=== PATIENT | female | born 1995 | race Caucasian/White ===

== ENCOUNTER 2023-12-07 05:20 | Inpatient (IN) ==
--- NOTE | 2023-11-23 09:15 | Anesthesiology Consultation ---
Date of Service November 23, 2023 Assessment & Plan (1) Encounter for pre-operative examination: Infectious disease screening: Per assessment on 11/23/23: No known infectious disease contacts or current infectious disease symptoms. No noted recent Covid positive test result. Chart Review Chart Review: Patient NOT seen in Pre Admission Testing and dice spotter initiated History Surgery Operation Date: 12/07/23 07:30 Proposed Procedures p Section (Delivery of Baby Through Abdominal Incision) - Anita Bliss MD, FACOG Height/Weight Height: 5 ft 3.5 in Weight: 69.853 kg Allergies Allergy/AdvReac Type Severity Reaction Status Date / Time No Known Allergies Allergy Verified 11/23/23 08:29 Medications Home Medications Medication Instructions Recorded Confirmed Last Taken vit 168-iron 27 mg-folic 1 cap PO QAM 04/16/23 11/23/23 Unknown acid 800 mcg-omega3 235 mg capsule (One-A-Day -1) Past Medical History Medical History History of COVID-19 2021- mild symptoms Past Family History Family History Father Dyslipidemia Hypertension Kidney stone Grandfather Dyslipidemia Cancer Diabetes Pancreatic cancer Sister Kidney stone Uncle Cancer Pancreatic cancer Grandfather (Paternal) Melanoma Past Surgical History Surgical History History of oral surgery wisdom teeth Social History Smoking Status: Never smoker Do You Dip or Chew Tobacco: No Hx Alcohol Use: No Hx Substance Use: No substance use type: does not use
--- NOTE | 2023-12-02 13:04 | History & Physical Report ---
Date of Service December 02, 2023 Assessment & Plan (1) with 39 completed weeks gestation: (2) Breech presentation: Plan Declines attempt at ECV. Plan primary c/s. r/b/se of surgery discussed including anesthesia, bleeding, transfusion, infection, poor wound healing, damage to surrounding structures, injury to the baby , need for further sugery, heart attack, blood clot, stroke, . Discussed the implication of c/s on future and delivery options. Consent reviewed and signed. Questions asked and answered. History of Present Illness Chief Complaint: breech presentation Primary Care Provider: Aureliano Rodriguez MD Patient is a 28yowf with iup at 39 1/7 weeks for primary c/s for breech. She declines ECV. has been uncomplicated. and Delivery Plans covid unvaccinated BREECH C/S SCHEDULED FOR 12/07/[address] MELLY TRAMMELL GBS positive OB Labs: Blood Type O Positive 04/27/23 Antibody Screen NEGATIVE 04/27/23 Hemoglobin 12.6 g/dl (12.0-16.0) 09/14/23 Hematocrit 38.6 % (37.0-47.0) 09/14/23 Mean Corpuscular Volume 88.2 fL (80.0-100.0) 06/01/23 Platelet Count 180 K/uL (130-400) 06/01/23 Rubella IgG Antibody Immune (Immune) 04/27/23 Rapid Plasma Reagin Nonreactive (Nonreactive) 04/27/23 Hepatitis B Surface Antigen. NON-REACTIVE (NON-REACTIVE) 04/27/23 Hepatitis C Antibody (EIA) NON-REACTIVE (NON-REACTIVE) 04/27/23 HIV (1&2) Ag and Ab Confirmation NON-REACTIVE (NON-REACTIVE) 04/27/23 Glucose 1 Hour 50 gm Load 153 mg/dl (70-130) H 06/23/23 OB Optional Labs: Chlamydia trachomatis RNA Not Detected (NotDetected) 04/27/23 Neisseria gonorrhoeae RNA Not Detected (NotDetected) 04/27/23 Labs Reviewed: Declines carrier screening--mln cfdna-low risk--mln declined afp passed 16 week gtt--akh GBS positive Allergies Allergy/AdvReac Type Severity Reaction Status Date / Time No Known Allergies Allergy Verified 12/02/23 15:11 Home Medications Medication Instructions Recorded Confirmed Type vit 168-iron 27 mg-folic 1 cap PO QAM 04/16/23 12/02/23 History acid 800 mcg-omega3 235 mg capsule (One-A-Day -1) Patient History Medical History History of COVID-19 2020, 2021- mild symptoms Surgical History History of oral surgery wisdom teeth Family History Father Dyslipidemia Hypertension Kidney stone Grandfather Dyslipidemia Cancer Diabetes Pancreatic cancer Sister Kidney stone Uncle Cancer Pancreatic cancer Grandfather (Paternal) Melanoma Social History Smoking Status: Never smoker Second Hand Exposure: No; Do You Dip or Chew Tobacco: No; Hx Alcohol Use: No Hx Substance Use: No Preferred Language: [place] Small Engine 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
[2023-12-07] MEDS: LACTATED RINGER'S 1,000 ML IV SCH ×2 (05:59→19:20)
[2023-12-07 06:09] LABS: Basophils # (auto) 0.03 K/uL (0.00-0.20); Basophils % (auto) 0.3 %; Eosinophils # (auto) 0.08 K/uL (0.00-0.50); Eosinophils % (auto) 0.9 %; Hematocrit (blood only) 39.4 % (37.0-47.0); Hemoglobin 13.5 g/dl (12.0-16.0); Immature Granulocytes # (auto) 0.07 K/uL (0.01-0.20); Immature Granulocytes % (auto) 0.8 %; Lymphocytes % (auto) 19.1 %; Mean Corpuscular Hemoglobin 30.7 pg (25.0-34.0); Mean Corpuscular Hgb Conc 34.3 g/dL (32.0-36.0); Mean Corpuscular Volume 89.5 fL (80.0-100.0); Mean Platelet Volume 11.1 fL (9.4-12.4); Monocytes # (auto) 0.82 K/uL (0.11-0.59); Monocytes % (auto) 9.2 %; Neutrophils % (auto) 69.7 %; Platelet Count 141 K/uL (130-400); RDW Coefficient of Variation 11.6 % (11.5-14.5); RDW Standard Deviation 37.9 fL (36.4-46.3)
[2023-12-07] MEDS ORDERED: OXYTOCIN 10 UNITS/ML VIAL ONE (06:56)
[2023-12-07] MEDS ORDERED: ePHEDrine sulfate 50 MG/5 ML SYR ONE (06:56)
[2023-12-07] MEDS ORDERED: fentaNYL citrate PF 100 MCG/2 ML VIAL ONE (06:56)
[2023-12-07] MEDS ORDERED: PHENYLEPHRINE HCL 10 MG/ML VIAL ONE (06:56)
[2023-12-07] MEDS ORDERED: ONDANSETRON INJ 2 MG/ML 2 ML VIAL ONE (06:56)
[2023-12-07] MEDS ORDERED: MoRPHine SULFATE PF 1 MG/ML 10 ML AMP/VIAL ONE (06:56)
[2023-12-07] MEDS ORDERED: KETOROLAC 30 MG/ML VIAL ONE (06:56)
[2023-12-07] MEDS ORDERED: ePHEDrine sulfate 50 MG/ML AMP IV PRN (07:10)
[2023-12-07] MEDS ORDERED: NALOXONE HCL 0.08 MG in SYRINGE 1.8 ML IV PRN (07:10)
[2023-12-07] MEDS ORDERED: ACETAMINOPHEN 1,000 MG/100 ML VIAL IV PRN (07:10)
[2023-12-07] MEDS ORDERED: diphenhydrAMINE 50 MG/ML VIAL IV PRN (07:10)
[2023-12-07] MEDS ORDERED: NALOXONE HCL 1 MG in SODIUM CHLORIDE 0.9% 1,000 ML IV PRN (07:10)
[2023-12-07] MEDS ORDERED: KETOROLAC 30 MG/ML VIAL IV PRN (07:10)
[2023-12-07] MEDS ORDERED: PROMETHAZINE HCL 6.25 MG in SODIUM CHLORIDE 0.9% 50 ML IV PRN (07:10)
[2023-12-07] MEDS ORDERED: NALBUPHINE HCL 5 MG in SYRINGE 0 ML IV PRN (07:10)
[2023-12-07] MEDS ORDERED: ONDANSETRON INJ 2 MG/ML 2 ML VIAL IV PRN ×2 (07:10→09:35)
[2023-12-07] MEDS ORDERED: HYDROmorphone INJ 0.5 MG/0.5 ML SYR IV PRN (07:10)
[2023-12-07] MEDS ORDERED: NALOXONE HCL 0.4 MG/1 ML VIAL/CARP IV PRN (07:10)
[2023-12-07] MEDS ORDERED: LACTATED RINGER'S 500 ML IV PRN (07:10)
--- NOTE | 2023-12-07 07:13 | History & Physical Bridge Note ---
Date of Service December 07, 2023 History & Physical Bridge Note I have examined the patient, reviewed the History & Physical and in the interval since the performance of the History & Physical I have noted the following changes of clinical significance: no changes noted, scanned and still breech.
[2023-12-07] MEDS ORDERED: DC INTRASPINAL MORPHINE SCH (07:15)
[2023-12-07] MEDS ORDERED: NO NARCOTICS OR SEDATIVES SCH (07:15)
[2023-12-07] MEDS: CITRIC ACID/SODIUM CITRATE 15 ML UDC PO SCH (07:27)
[2023-12-07] MEDS: ceFAZolin 2,000 MG in SYRINGE 0 ML IV SCH (07:31)
--- NOTE | 2023-12-07 08:31 | Operative Report ---
PG Post Operative Report Pre & Post Diagnosis Operation Date: 12/07/23 07:30 Pre-Op Diagnosis: Breech Presentation Post-Op Diagnosis: Breech Presentation I identified the patient and participated in the time-out.: Yes Procedure Operation Date: 12/07/23 07:30 Actual Procedures p primary low transverse Section delivery of live female child at 0755 - Anita Bliss MD, FACOG Surgeon Anita Bliss MD, FACOG [place] Spreader Dr. Livingston and Dr. Mcgraw Estimated Blood Loss 428 (QBL calculated) Findings Consistent with Post-Op Diagnosis viable female infant in LSA. clear fluid. Slightly heart shaped uterus, no indentation of the uterine cavity. nl tubes and ovaries bilaterally. Fluids 900cc Specimens none Drains crandall Anesthesia Type Spinal Complications none Disposition Accompanied Patient To Recovery: Yes Disposition: L&D Indications 28yowf with iup at 39 weeks with chantelle breech presentation. Description of Procedure The patient was taken to the operating room where she was identified verbally and by bracelet. She was seated on the operating table where a spinal anesthetic was placed by anesthesia. She was then placed in the supine position with a leftward tilt. A Crandall catheter was placed sterilely. the patient was prepped and draped in a normal standard fashion. the anesthetic was tested and found to be adequate. A time-out was held, identifying correct patient, procedure, positioning and preoperative antibiotics. There were no concerns. A Pfannenstiel skin incision was made with a knife and taken down to the underlying layer of fascia with the knife and Bovie electrocautery. Bleeding was attended to with the Bovie. The fascia was incised in the midline with the knife and taken out laterally with scissors. The superior edge of the fascial incision was grasped, elevated and the underlying layer of rectus muscle was taken off bluntly and with scissors. In a similar fashion, the inferior edge of the fascial incision was grasped, elevated and the underlying layer of rectus muscle was taken off bluntly and with scissors. The muscles were bluntly in the midline. The peritoneum was entered bluntly. The incision was then stretched. The bladder blade was placed. The vesicouterine peritoneum was identified, entered with scissors and taken out laterally with scissors. The bladder flap was created digitally A hysterotomy incision was scored with a knife and the incision was stretched superiorly and inferiorly with the pebble mill operator's fingers. The operators hand was placed into the incision and the buttocks were delivered atraumatically. The legs and arms were easily reduced across the body. The head was delivered atraumatically with fundal pressure. No nuchal cord. The nose and mouth were bulb suctioned. The baby was vigorous. The cord was clamped and cut and the was then handed off to the awaiting mincemeat maker for drying and attention. Cord blood and segment were obtained. The placenta was Manually extracted. The uterus was exteriorized and cleared of all clot and debris with moistened laparotomy sponges. The hysterotomy incision was repaired in two layers, the first in a running locked layer, the second in an imbricating layer. Hemostasis was noted to be good. Posterior cul-de-sac was irrigated and cleared of all clot and debris. The hysterotomy incision was again inspected and found to be hemostatic. the uterus was reinteriorized. Hysterotomy incision was again inspected and found to be hemostatic. Rectus muscles were reapproximated with several interrupted stitches of 0 Vicryl. The fascia was then reapproximated with 0 Vicryl starting at the edges and meeting in the midline. The subcuticular tissues were copiously irrigated and bleeding was attended to with cautery. The skin was then closed with 4-0 Vicryl in a subcuticular fashion. All sponge , lap and needle counts were correct x 2. the patient tolerated the procedure well and was taken to the recovery room in stable condition. Apgars 8/9. I attest to the content of the Intraoperative Record and any orders documented therein. Any exceptions are noted below. OB Procedure Charges 43456
[2023-12-07] MEDS ORDERED: NON-FORMULARY MEDICATION (Prenatal 168-Iron-Folic-Omega3 [One-A-Day Prenatal-1] 27 mg iron PO SCH (09:35)
[2023-12-07] MEDS ORDERED: BENZOCAINE 20% SPRY 85 APPLN/85 GM CAN EXT PRN (09:35)
[2023-12-07] MEDS ORDERED: HYDROCORTISONE ACETATE 25 MG SUPP PR PRN (09:35)
[2023-12-07] MEDS ORDERED: SENNA 8.6 MG TAB PO PRN (09:35)
[2023-12-07] MEDS ORDERED: MAGNESIUM HYDROXIDE SUSP 30 ML UDC PO PRN (09:35)
--- NOTE | 2023-12-07 10:01 | Anesthesiology Progress Note ---
Date of Service December 07, 2023 Anesthesia Post Procedure Vital Signs Vital Signs: Temp Pulse Resp BP Pulse Ox 12/07/23 09:56 99 12/07/23 09:56 56 L 12/07/23 09:56 59 L 114/77 12/07/23 09:51 55 L 99 12/07/23 09:46 58 L 99 12/07/23 09:45 55 L 113/67 12/07/23 09:41 57 L 99 12/07/23 09:36 58 L 99 12/07/23 09:35 55 L 114/67 12/07/23 09:31 58 L 99 12/07/23 09:26 56 L 98 12/07/23 09:25 97.7 F 18 12/07/23 09:25 54 L 114/66 12/07/23 09:21 71 99 12/07/23 09:16 61 98 12/07/23 09:15 18 12/07/23 09:15 59 L 110/66 12/07/23 09:11 57 L 99 12/07/23 09:06 98 12/07/23 09:06 62 12/07/23 09:06 59 L 108/64 12/07/23 09:05 20 12/07/23 09:01 56 L 98 12/07/23 08:56 59 L 109/68 97 12/07/23 08:55 18 12/07/23 08:51 61 97 12/07/23 08:46 98 12/07/23 08:46 59 L 12/07/23 08:46 59 L 114/64 12/07/23 08:45 18 12/07/23 08:41 61 98 12/07/23 08:36 99 12/07/23 08:36 64 12/07/23 08:36 60 111/55 L 12/07/23 08:35 16 12/07/23 08:31 65 100 12/07/23 08:26 65 99 12/07/23 08:25 69 116/56 L 12/07/23 07:00 18 12/07/23 07:00 98.1 F 12/07/23 06:58 67 117/77 12/07/23 05:54 76 126/84 12/07/23 05:50 98.2 F 12/07/23 05:44 88 136/87 Transfer of Care Handoff Completed per policy Notes Mental Status: alert / awake / arousable and participated in evaluation Patient Amnestic to Procedure: Yes Nausea / Vomiting: adequately controlled Pain: adequately controlled Airway Patency, RR, SpO2: stable & adequate BP & HR: stable & adequate Hydration State: stable & adequate Neuraxial Anesthesia: was administered and sensory block is resolving Anesthetic Complications: no major complications apparent and Pt Satisfied with anesthetic care
[2023-12-07] MEDS: OXYTOCIN 20 UNITS/LR 1,002 ML IV SCH (11:41)
[2023-12-07] MEDS: DIPHTHER/TETAN/PERTUS Vaccine (Tdap, Adol/Adult) 0.5mL IM ONE (12:11)
[2023-12-07] MEDS: SIMETHICONE 80 MG CHEW PO SCH (12:11)
[2023-12-07] MEDS: SODIUM CHLORIDE 0.9% 1,000 ML IV SCH (19:19)
[2023-12-07] MEDS: DOCUSATE SODIUM 100 MG CAP PO SCH (20:47)
[2023-12-08] MEDS ORDERED: diphenhydrAMINE 50 MG/ML VIAL IV PRN (01:10)
[2023-12-08] MEDS ORDERED: oxyCODONE/ACETAMINOPHEN 5mg/325mg TAB PO PRN (01:10)
[2023-12-08] MEDS ORDERED: diphenhydrAMINE Capsule 25 MG CAP PO PRN (01:10)
[2023-12-08] MEDS ORDERED: PROMETHAZINE HCL 25 MG in SODIUM CHLORIDE 0.9% 50 ML IV PRN (01:10)
[2023-12-08] MEDS ORDERED: KETOROLAC 30 MG/ML VIAL IV PRN (01:10)
[2023-12-08] MEDS: IBUPROFEN 600 MG TAB PO PRN (01:47)
[2023-12-08] MEDS: MoRPHine SULFATE PF 1 MG/ML 10 ML AMP/VIAL INT SPINAL ONE (01:47)
--- NOTE | 2023-12-08 07:03 | Obstetrical Progress Note ---
Date of Service <Marcelo Mcgraw DO - Last Filed: 12/08/23 07:53> December 08, 2023 Assessment & Plan <Marcelo Mcgraw DO - Last Filed: 12/08/23 07:53> (1) Encounter for assessment: Plan 28 y/o POD#1 Eating well, voiding well, ambulating well Vitals reviewed, WNL Pain well controlled with Motrin Routine post op care - OOB, ambulation, diet progression as tolerated Will have 6 week follow up with Dr. Bliss <Margarette Carballo MD, FACOG - Last Filed: 12/08/23 08:00> (1) Encounter for assessment: Subjective <Marcelo Mcgraw DO - Last Filed: 12/08/23 07:53> Ambulation: ambulating normally Voiding: no voiding problems Passing Gas:: No Diet Tolerance:: regular diet Lochia:: Moderate Feeding Type:: breast feeding Sore but pain well controlled with Motrin Review of Systems -Denies fever or chills -Denies dyspnea, chest pain, or palpitations -Denies dysuria -Denies headache or changes in vision Physical Exam <Marcelo Mcgraw DO - Last Filed: 12/08/23 07:53> General: Alert and oriented. No acute distress Cardiac: Regular rate and rhythm, no murmurs appreciated Respiratory: Lungs clear to auscultation bilaterally, No increased work of breathing Abdominal: Soft, non-tender, non-distended. Bowel sounds present. Uterus: Uterine fundus firm, palpable below umbilicus Extremities: No lower extremity edema, calves non-tender bilaterally Results & Data <Marcelo Mcgraw DO - Last Filed: 12/08/23 07:53> Vital Signs (Past 12 Hours) Vital Signs Temp Pulse Pulse Resp BP Pulse Ox O2 Del Method 12/08/23 04:50 37 C 68 16 99/60 L 99 Room Air 12/08/23 01:00 16 97 12/08/23 00:00 16 97 12/07/23 23:15 37 C 74 16 106/65 97 Room Air 12/07/23 22:00 16 98 12/07/23 21:00 16 97 12/07/23 19:50 37 C 67 16 111/68 97 Room Air Supervising Physician <Margarette Carballo MD, FACOG - Last Filed: 12/08/23 08:00> Co-Signing Physician Notes Resident Physician Supervision Note: I was present with Dr. Mcgraw during the history and exam. I discussed the case with the resident and agree with the findings and plan as documented in the note. Any exceptions or clarifications are listed here: stable, doing well, no flatus yet, eating regular diet, voiding. breast feeding. no pain control issues. abd soft ff 2 down nt, incision c/d/i with steris, ext nt calves. pod#1 s/p cs routine care, hgb pending. Documented By: Margarette Carballo MD, FACOG Resident Activity Tracking <Marcelo Mcgraw DO - Last Filed: 12/08/23 07:53> Resident Involvement: Resident Care Provided Care Provided: OB Delivery
[2023-12-08 07:05] LABS: Basophils # (auto) 0.02 K/uL (0.00-0.20); Basophils % (auto) 0.2 %; Eosinophils % (auto) 1.2 %; Hematocrit (blood only) 33.5 % (37.0-47.0); Hemoglobin 11.4 g/dl (12.0-16.0); Immature Granulocytes # (auto) 0.05 K/uL (0.01-0.20); Immature Granulocytes % (auto) 0.6 %; Lymphocytes % (auto) 15.6 %; Mean Corpuscular Hemoglobin 31.4 pg (25.0-34.0); Mean Corpuscular Volume 92.3 fL (80.0-100.0); Mean Platelet Volume 10.7 fL (9.4-12.4); Monocytes # (auto) 0.55 K/uL (0.11-0.59); Monocytes % (auto) 6.6 %; Neutrophils # (auto) 6.33 K/uL (1.40-6.50); Neutrophils % (auto) 75.8 %; Platelet Count 110 K/uL (130-400); RDW Coefficient of Variation 11.8 % (11.5-14.5); RDW Standard Deviation 39.8 fL (36.4-46.3); Red Blood Count 3.63 M/uL (4.20-5.40); White Blood Count 8.35 K/ul (4.8-10.8)
[2023-12-08] MEDS: PRENATAL VITAMIN 1 TAB PO SCH (08:00)
[2023-12-08] MEDS: FERROUS SULFATE 325 MG TAB PO SCH (08:00)
[2023-12-08] MEDS: bisacodyL 5 MG TABEC PO SCH (20:15)
--- NOTE | 2023-12-09 06:03 | Obstetrical Progress Note ---
Date of Service <Marcelo OlsonDO vitaly - Last Filed: 12/09/23 06:03> December 09, 2023 Assessment & Plan <Marcelo Mcgraw - Last Filed: 12/09/23 06:03> (1) Encounter for assessment: Plan 28 y/o POD#2 Eating well, voiding well, ambulating well Vitals reviewed, WNL Pain well controlled with Motrin Routine post op care - OOB, ambulation, diet progression as tolerated Will have 6 week follow up with Dr. Bliss <Salome Pearson MD - Last Filed: 12/09/23 07:07> (1) Encounter for assessment: Subjective <Marcelo McgrawDO vitaly - Last Filed: 12/09/23 06:03> Ambulation: ambulating normally Voiding: no voiding problems Passing Gas:: Yes Diet Tolerance:: regular diet Lochia:: Small Feeding Type:: breast feeding pain well controlled with Motrin Review of Systems -Denies fever or chills -Denies dyspnea, chest pain, or palpitations -Denies dysuria -Denies headache or changes in vision Physical Exam <Marcelo McgrawDO vitaly - Last Filed: 12/09/23 06:03> General: Alert and oriented. No acute distress Cardiac: Regular rate and rhythm, no murmurs appreciated Respiratory: Lungs clear to auscultation bilaterally, No increased work of breathing Abdominal: Soft, non-tender, non-distended. Bowel sounds present. Uterus: Uterine fundus firm, palpable below umbilicus Extremities: No lower extremity edema, calves non-tender bilaterally Results & Data <Marcelo Mcgraw DO - Last Filed: 12/09/23 06:03> Vital Signs (Past 12 Hours) Vital Signs Temp Pulse Resp BP Pulse Ox O2 Del Method 12/08/23 23:55 36.4 C L 59 L 16 122/68 97 Room Air 12/08/23 20:10 36.6 C 68 16 116/75 98 Room Air Supervising Physician <Salome Pearson MD - Last Filed: 12/09/23 07:07> Co-Signing Physician Notes Resident Physician Supervision Note: I interviewed and examined the patient. Discussed with Dr. Mcgraw and agree with findings and plan as documented in the note. Any exceptions or clarifications are listed here: POD2 s/p pLTCS, doing well. Still waiting for milk to come in. VSS, exam benign and wnl, incision c/d/i. Not sure if wants to go home today or tomorrow, ok for today if desires Documented By: Salome Pearson MD Resident Activity Tracking <Marcelo Mcgraw, - Last Filed: 12/09/23 06:03> Resident Involvement: Resident Care Provided Care Provided: OB Delivery
[2023-12-09 06:25] LABS: Hematocrit (blood only) 35.5 % (37.0-47.0); Hemoglobin 11.8 g/dl (12.0-16.0)
[2023-12-09] MEDS ORDERED: bisacodyL 10 MG SUPP PR PRN (08:17)
--- NOTE | 2023-12-10 15:08 | Discharge Summary ---
Date of Service December 10, 2023 Admission HPI Per Admitting Provider Patient is a 28yowf with iup at 39 1/7 weeks for primary c/s for breech. She declines ECV. has been uncomplicated. and Delivery Plans covid unvaccinated BREECH C/S SCHEDULED FOR 12/07/[address] ANITA TRAMMELL GBS positive OB Labs: Blood Type O Positive 04/27/23 Antibody Screen NEGATIVE 04/27/23 Hemoglobin 12.6 g/dl (12.0-16.0) 09/14/23 Hematocrit 38.6 % (37.0-47.0) 09/14/23 Mean Corpuscular Volume 88.2 fL (80.0-100.0) 06/01/23 Platelet Count 180 K/uL (130-400) 06/01/23 Rubella IgG Antibody Immune (Immune) 04/27/23 Rapid Plasma Reagin Nonreactive (Nonreactive) 04/27/23 Hepatitis B Surface Antigen. NON-REACTIVE (NON-REACTIVE) 04/27/23 Hepatitis C Antibody (EIA) NON-REACTIVE (NON-REACTIVE) 04/27/23 HIV (1&2) Ag and Ab Confirmation NON-REACTIVE (NON-REACTIVE) 04/27/23 Glucose 1 Hour 50 gm Load 153 mg/dl (70-130) H 06/23/23 OB Optional Labs: Chlamydia trachomatis RNA Not Detected (NotDetected) 04/27/23 Neisseria gonorrhoeae RNA Not Detected (NotDetected) 04/27/23 Labs Reviewed: Declines carrier screening--mln cfdna-low risk--mln declined afp passed 16 week gtt--[facility] GBS positive Discharge Data Consultations 12/07/23 05:26 Consult Anesthesiology Stat Procedures Performed Operation Date: 12/07/23 07:30 Actual Procedures p Section delivery of live female child at 0755 - Anita Trammell MD, [facility] – [place] Hospital Course (1) Breech presentation: (2) with 39 completed weeks gestation: (3) delivery delivered: Plan The patient was admitted on 12/07/23 and underwent a primary low transverse c- section without issues. Blood loss less than 500cc. Her post -postop ourse was uncomplicated. she tolerated a regular diet, ambulated without difficulty, voided after removal of her crandall, tolerated oral pain medications. She was d/c home on pod #2, 12/09/23. Her discharge h/h was 11.8/35.5. Coding Level of Care Code None Diagnoses Breech presentation, single or unspecified fetus O32.1XX0 Fetus number: single or unspecified fetus with 39 completed weeks gestation Z3A.39 delivery delivered O82
== END 2023-12-09 15:30 | disposition home or self-care (01) | DRG 788 ==
LOC: 4S1 05:20 → EDSTATUS 07:30 → 4E2 10:55
DX: O32.1XX0 Maternal care for breech presentation, not applicable or unspecified; Z3A.39 39 weeks gestation of pregnancy; Z37.0 Single live birth